=== PATIENT | male | born 1970 | race Hispanic/Latino ===

== ENCOUNTER → 2025-02-18 | Outpatient (CLI) | payer MEDICAID ==
--- NOTE | 2025-02-19 10:52 | HMCIMG ---
EXAMINATION: ULTRASOUND OF THE ABDOMEN WITH DUPLEX SCAN. CLINICAL HISTORY: Hepatic fibrosis, advanced fibrosis. COMPARISON: None. TECHNIQUE: Real-time grayscale ultrasound images of the abdomen. In addition, color Doppler is medically necessary to perform in order to evaluate vascularity and blood flow. FINDINGS: Liver: Bulky in caliber, the right hepatic lobe measures 16.1 cm in the craniocaudal dimension. There is increased echogenicity of the hepatic parenchyma. There is no focal hepatic abnormality or intrahepatic biliary ductal dilatation. The main portal vein is normal and measures 1.2 cm. Appropriate hepatopetal flow within the hepatic arteries and portal veins, and hepatofugal flow within the hepatic veins. Doppler indices are as follow: Main portal vein: 14 cm/s Right hepatic vein: 30 cm/s Mid hepatic vein: 19 cm/s Left hepatic vein: 30 cm/s Splenic vein: 22 cm/s. Hepatic artery: 85 cm/s and RI 0.6 Gallbladder: Within normal limits with normal wall thickness (0.3 cm). No hyperemia or pericholecystic free fluid. There is no cholelithiasis. Common bile duct is normal in caliber, measuring 0.5 cm. Spleen is bulky in caliber and measures 14.8 x 4.5 x 5.1 cm in craniocaudal, AP, and transverse dimensions respectively. No focal lesions. Pancreas: Head and body appear normal in caliber and echotexture. No calcification or dilated pancreatic duct. Tail is obscured by overlying bowel gas. The kidneys are normal in caliber, the right kidney measures 10.7 x 5.9 x 4.2 cm and the left kidney measures 12.0 x 4.8 x 4.5 cm in its craniocaudal, AP and transverse dimensions respectively. There is normal renal cortical thickness and cortical echogenicity. There is no renal calculus or hydronephrosis bilaterally. There is a simple cortical cyst that measure 1.9 x 1.3 x 1.2 cm in the right renal upper pole. The proximal aorta is normal in caliber measuring 1.6 cm. IMPRESSION: Hepatomegaly with hepatic steatosis. Mild splenomegaly. Right renal simple cortical cyst. Slow flow in the main portal vein. /Aysha
== END | disposition home or self-care (01) ==
LOC: RAH 07:56
PROVIDERS: ATTEND Internal Medicine Gastroenterology
DX: N28.1 Cyst of kidney, acquired (principal); K76.0 Fatty (change of) liver, not elsewhere classified; K74.02 Hepatic fibrosis, advanced fibrosis; R16.2 Hepatomegaly with splenomegaly, not elsewhere classified
CPT/HCPCS: 76700; 93975